=== PATIENT | male | born 1970 | race Caucasian/White ===

== ENCOUNTER 2019-01-29 12:47 | Day surgery (SDC) | payer OTHER ==
[2019-01-29] MEDS ORDERED: PROPOFOL 60 ML (14:15)
[2019-01-29] MEDS ORDERED: LIDOCAINE 2% (SDV) 5 ML INJ (14:15)
[2019-01-29] MEDS ORDERED: LEVOFLOXACIN 500MG/D5W (PMX) 100 ML IVPB (15:00)
== END 2019-01-29 15:43 | disposition home or self-care (01) ==
LOC: GIL 12:47 → SDS 12:47 → GIL 12:47
DX: Z12.11 Encounter for screening for malignant neoplasm of colon (principal); K21.0 Gastro-esophageal reflux disease with esophagitis; D12.7 Benign neoplasm of rectosigmoid junction; K57.30 Diverticulosis of large intestine without perforation or abscess without bleeding; I10 Essential (primary) hypertension; J44.9 Chronic obstructive pulmonary disease, unspecified
CPT/HCPCS: 43239; 88305; 88312; 88313